=== PATIENT | female | born 1930 | race Caucasian/White ===

== ENCOUNTER 2016-06-30 10:50 | Inpatient (IN) | payer OTHER ==
[2016-06-30 11:03] LABS: % IMMATURE GRANULYOCYTES 0.4 % (0.0-1.1); ABSOLUTE IMMATURE GRANULOCYTES 0.03 10^3/uL (0.00-0.10); ADD DIFF? NO; ADD MORPH? NO; ADD SCAN? NO; ATYPICAL LYMPHOCYTE FLAG 0 (0-99); FRAGMENT RBC FLAG 0 (0-99); HEMATOCRIT 41.3 % (38.0-47.0); HEMOGLOBIN 14.3 g/dL (12.6-16.3); LEFT SHIFT FLG 0 (0-99); LIPEMIA HEMOLYSIS FLAG 90 (0-99); MEAN CELL HEMOGLOBIN 32.7 pg (27.9-34.1); MEAN CELL HEMOGLOBIN CONCENTR. 34.6 g/dL (32.4-36.7); MEAN CELL VOLUME 94.5 fL (81.5-99.8); MEAN PLATELET VOLUME 10.9 fL (8.7-11.7); PLATELET CLUMPS FLAG 0 (0-99); PLATELET COUNT 139 10^3/uL (150-400); RED BLOOD CELL COUNT 4.37 10^6/uL (4.18-5.33); RED CELL DISTRIBUTION WIDTH 14.6 % (11.5-15.2)
[2016-06-30 11:15] LABS: INR 1.32 (0.83-1.16); PROTIME(PATIENT) 16.4 SEC (12.0-15.0)
[2016-06-30 11:17] LABS: ANION GAP 11 mEq/L (8-16); CALCIUM 8.8 mg/dL (8.5-10.4); CARBON DIOXIDE 31 mEq/l (22-31); CHLORIDE 93 mEq/L (97-110); CREATININE 0.6 mg/dL (0.6-1.0); GLOMERULAR FILTRATION RATE > 60; GLUCOSE 124 mg/dL (70-100); POTASSIUM 4.7 mEq/L (3.5-5.2); SODIUM 135 mEq/L (134-144)
--- NOTE | 2016-06-30 11:32 | CT ---
CT Head Without Contrast History: Found down, stroke alert. Comparison: None available. Technique: Axial unenhanced images were obtained from the vertex through the skull base. Dose reducti on techniques were utilized. Findings: There is extensive hypodensity throughout the right MCA distribution with edema and loss of sutherland-white differentiation, with areas of high attenuation in the temporal lobe (series 3 image 55 e .g.), compatible with a large MCA infarct with possible hemorrhagic transformation. High attenuation in the right middle cerebral artery suggests occlusion. Mild diffuse cerebral atrophy is present. The re is no significant midline shift. Mild mucous membrane thickening is present in the paranasal sinus es. The mastoid air cells are clear. Impression: 1. Large right MCA infarct, possibly subacute, with likely hemorrhagic transformation, with high atte nuation of the right MCA, consistent with occlusion. 2. Additional findings as above. Findings discussed with Dr. Angelic Hooks today at 1105 hours.
--- NOTE | 2016-06-30 11:43 | DX ---
Portable Chest - June 30, 2016 at 1133 hours History: Acute neurologic change, found down.. Comparison: None available. Findings: There is mild diffuse interstitial prominence. There is no focal consolidation or visible p leural effusion. There is moderate cardiomegaly. The aorta is ectatic, tortuous, and atherosclerotic. Fracture of the third superiormost sternotomy wire is noted. Multiple surgical clips are present in the axillae bilaterally and over the right chest. Mastectomy changes are noted. Impression: 1. Mild interstitial prominence, which could be related to bronchitis or mild fluid overload. 2. Cardiomegaly. 3. Tortuous ectatic atherosclerotic aorta. 4. Additional findings as above.
[2016-06-30] MEDS ORDERED: HYDROCORTISONE 100 MG/2 ML VIAL IVP ONE (12:30)
[2016-06-30] MEDS ORDERED: ONDANSETRON 4 MG/2 ML VIAL IVP PRN (14:17)
[2016-06-30] MEDS ORDERED: ACETAMINOPHEN 650 MG SUPP PR PRN (14:17)
[2016-06-30] MEDS: NS 1,000 ML IV SCH (15:22)
[2016-06-30] MEDS: LEVOTHYROXINE 100 MCG/5 ML SYR IVP SCH (15:28)
--- NOTE | 2016-06-30 16:04 | GCON ---
[f rep st] CONSULTATION SENIOR MOBILE APPLICATION DEVELOPER CONSULTATION. REASON FOR ADMISSION: Acute large stroke. HISTORY OF PRESENT ILLNESS: The patient is an 86-year-old white female with a past medical history o f hypertension and atrial fibrillation. She presents after being found down at home by her son, marguerite ear how long she had been down. She was brought to the emergency room. It was decided that she was not a candidate for tPA. CT scan shows a very large stroke. The patient is currently nonverbal. He r eyes are open. All history is gleaned from the medical record as well as the patient's son. PAST MEDICAL HISTORY: Significant for hypertension and atrial fibrillation. ALLERGIES: None known to medications. SOCIAL HISTORY: No history of tobacco use. Infrequent alcohol use. She is . 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 She has lived in [place] since 2008. S he is originally from [facility]. CURRENT MEDICATIONS: Include Tylenol, Synthroid, Zofran. PHYSICAL EXAM: VITAL SIGNS: Blood pressure is 179/88, pulse 61, respirations 17. She is afebrile. Oxygen saturation 99% on 2 L. GENERAL: She is a well-developed, well-nourished, elderly white fema le who is resting comfortably in no acute distress. HEENT: Eyes: CHUY. EOMI. Throat shows no hyun thema or tonsillar hypertrophy. NECK: Supple. There is no cervical adenopathy. HEART: Irregularl y irregular with a 2/6 systolic murmur in the left sternal border without radiation. LUNGS: Diminis hed breath sounds but no wheeze. ABDOMEN: Soft, nontender. Bowel sounds present in all 4 quadrants . EXTREMITIES: No clubbing, cyanosis, or edema. LABORATORIES: White count 7.0, hemoglobin of 14, hematocrit 41, platelet count is 139. INR is 1.32. Sodium 135, potassium 4.5, chloride 93, CO2 31, BUN 24, creatinine 0.6, glucose is 129. TSH is 4.[address] scan of the head shows a large right MCA infarct with some hemorrhagic transformation. IMPRESSION: 1. 2. Large right middle cerebral artery stroke. 3. Atrial fibrillation. 4. Hypertension. 5. Hypothyroidism. RECOMMENDATIONS: 1. Agree with admission to the intensive care unit. 2. Echocardiogram is currently being performed. 3. DVT and PE prophylaxis. 4. Stress ulcer prophylaxis. 5. Neurology consult. 6. PT and OT. 7. Speech consult. /[id number]/MODL
--- NOTE | 2016-06-30 16:44 | GHP ---
[f rep st] HISTORY AND PHYSICAL DATE OF ADMISSION: 06/30/2016 CHIEF COMPLAINT: Right MCA stroke. HISTORY OF PRESENT ILLNESS: The patient is an 86-year-old female, history of dementia, hypothyroidism, and adrenal insufficiency, presenting with weakness. Most of this history is obtained from patient's daughter and son, as the patient is not fully able to participate in history. The patient lives alone, and son was checking in on her yesterday. He spoke to her on the phone at approximately 6 p.m. and patient was lucid. He does state that she says she had not been feeling well for a week; but was not specific in symptoms. Per daughter, yesterday she was more confused, and they attributed this to her being off her oxygen for a short time. Her mental status has been declining over the past 6 months. Her baseline mental status is that she would know herself and place. Not necessarily the date. Son called her this morning, and there was no answer, and he thought perhaps she was in the shower or running errands as she still does drive. He called again at 10 a.m. and still no answer. Thus, he was concerned and went over to her home. He found her on the floor. She had slurry speech at that time. She did not want to come to the hospital. CT head demonstrated a large right MCA infarct with likely hemorrhagic transformation consistent with occlusion. The patient with history of atrial fibrillation, is on baby aspirin. She had previously been on Coumadin; however, had a retroperitoneal bleed several years ago. REVIEW OF SYSTEMS: I completed a 10-point review of systems with family, negative except as noted in HPI. PAST MEDICAL HISTORY: 1. Dementia with decline over the last 6 months. 2. Hypothyroid. 3. Adrenal cyst. 4. Urinary incontinence. 5. Pulmonary hypertension. 6. Chronic hypoxemic respiratory failure, 2 L at rest, 4-5 L with exertion. 7. Atrial fibrillation. Please go back up to HPI. 8. History of retroperitoneal bleed on Coumadin. PAST SURGICAL HISTORY: The patient not able to tell me. FAMILY HISTORY: No strokes. SOCIAL HISTORY: Lives alone in [place]. Son is 2 blocks away. She normally walks several times a week with trek poles or a cane. Had remote tobacco. No alcohol or illicits. MEDICATIONS: 1. Hydrocortisone 2.5 mg daily. 2. Fish oil. 3. Multivitamin. 4. Levothyroxine 25 mcg daily. 5. Levothyroxine 37.5 mcg daily at 6 a.m. 6. Aspirin 81 mg. 7. Vitamin C. ALLERGIES: No known drug allergies. PHYSICAL EXAMINATION: VITAL SIGNS: Temperature 36.8, blood pressure 179/80, heart rate is 60s, respirations 17 99% on 2 L. GENERAL: Patient is lying in bed , in no acute distress. She opens her eyes to voice. Pupils are small, round reactive to light. CV: Irregularly irregular. No murmurs, gallops, or rubs. LUNGS: Clear to auscultation. ABDOMEN: Soft, nontender, nondistended. Positive bowel sounds. : No suprapubic tenderness. No Torres. MUSCULOSKELETAL: 5/5 upper lower extremity strength on the right. No hand clerical supervisor on the left. NEUROLOGIC: Decreased sensation over left face, as well as left upper extremity and left lower extremity. Upgoing toes. PSYCHIATRIC: The patient is alert, is able to answer some questions. She knows she is in [place]. LABS: WBC 7, hemoglobin 14, hematocrit 41, platelets 139. INR is 1.3, PT 16. Sodium 135, potassium 4.7, chloride 93, carbon dioxide 31, creatinine 0.6, glucose 126. TSH 4.7. Chest x-ray personally reviewed by me. Mild interstitial prominence. No overt fluid overload. Cardiomegaly. Head CT: Large right MCA infarct, possibly subacute with likely hemorrhagic transformation. Telemetry with atrial fibrillation. EKG is pending. ASSESSMENT/PLAN: 1. Right middle cerebral artery stroke: she was evaluated by Telemedicine Neuro in the ER. Could not determine exact time when symptoms began; thus, not a candidate for tPA. She currently has significant left-sided deficits. She is speaking more, per her family. She will be admitted to the ICU for neuro checks. Plan for evaluation by PT, OT and speech pathology. I suspect this is embolic with underlying atrial fibrillation. Patient currently on baby aspirin , but unclear if she is compliant with this every day. She was previously on coumadin, but this was complicated by a retroperitoneal bleed. 2. Dementia: Per family, her mental status has been declining over the last 6 months. She is living alone with family close by. Suspect the patient will need acute rehab after hospitalization. 3. Atrial fibrillation: Rate-controlled, currently off medications. Had been on aspirin. Holding this. We will have to have further discussions with the family as far as anti-platelet medication. 4. Hypothyroidism: Will dose with IV levothyroxine since not taking p.o. 5. Adrenal insufficiency: she is chronically on a very low dose of hydrocortisone. Will redose tomorrow 6. Chronic hypoxemic respiratory failure: She is at her baseline of 2 L. will monitor closely. 7. Diet: N.p.o. 8. DVT prophylaxis: SCDs. 9. Goals of care: I talked with both daughter and son, and she is currently full code. If things were to decline, would have further discussions. DISPOSITION: Patient warrants inpatient admission given acute stroke, and monitoring in the ICU. Time spent on visit: 75 min in which >50% spent counseling son and daughter on prognosis and treatment plan. /[id number]/MODL MTDD
--- NOTE | 2016-06-30 18:44 | ECHO ---
[id number] + + [address] : : [place] [address] : : [phone] + + Adult Echocardiographic Report + ------+ :Name: MARLENE GALAN 898Study Date: 06/30/2016 03:08 PM : : Hospital Admission Number: [id number] : :: 1930 Gender: Female Height: 63 in : :Age: 86 yrs Race: WH,PTJAE Weight: 14 2 lb : :Reason For Study: Eval for Embolic Source : : BSA: 1.7 m eters2: :History: CVA : + ------+ MMode/2D Measurements & Calculations IVSd: 0.79 cm LVIDd: 5.2 cm FS: 38.3 % MV Diam: 3.4 cm LVPWd: 0.80 cm LVIDs: 3.2 cm EDV(Teich): 130.2 ml ESV(Teich): 41.4 ml EF(Teich): 68.2 % Ao root diam: 3.6 cm LVOT diam: 1.7 cm ACS: 1.7 cm LVOT area: 2.3 cm2 Normal Measurement Values: + + :LVIDd (3.5-5.7cm) IVSd (0.6-1.1cm) LVPWd (0.6-1.1cm) Aortic Root (2.0-3.7cm)Left Atrium (1.5-4.0cm): :LV Vol(d) (76-115ml) LV Vol(s) (29-48ml) Ejec Fraction (50-65%)PV Jorge (0.6- 1.2m/s) TV Jorge (0.4-1.0m/s) : :MV E Jorge (0.8-1.0m/s)MV A Jorge (0.3-1.0m/s)LVOT Jorge (0.7-1.2m/s) Asc Ao Jorge ( 0.9-1.8m/s) : + + Doppler Measurements & Calculations MV E max jorge: MV V2 mean: MV P1/2t max jorge: Ao V2 max: 117.0 cm/sec 97.8 cm/sec 152.3 cm/sec 187.1 cm/sec MV A max jorge: MV mean PG: MV P1/2t: 63.1 msec Ao max P.7 cm/sec 4.3 mmHg 14.0 mmHg MV E/A: 1.8 MV V2 VTI: 38.2 cm MVA(P1/2t): 3.5 cm2 Ao mean PG: MV area (1 diam): MV dec slope: 7.8 mmHg 706.8 cm/sec2 Ao V2 mean: 9.3 cm2 126.8 cm/sec MVA(VTI): 1.1 cm2 Ao V2 VTI: MV Flow area 41.1 cm (1diam): 9.3 cm2 ERIKA(I,D): 1.0 cm2 ERIKA(V,D): 1.2 cm2 AI max jorge: LV V1 max: MR max jorge: MR(RF 1 diam): 451.5 cm/sec 95.3 cm/sec 464.4 cm/sec 2.2 % AI max PG: LV V1 max PG: MR max P.3 mmHg 81.5 mmHg 3.6 mmHg LV V1 mean P.6 mmHg LV V1 mean: 54.2 cm/sec LV V1 VTI: 18.5 cm SV(MV 1 diam): TR max jorge: RF(MV,Ao)(1 diam): - 354.1 ml 389.6 cm/sec 0.18 SI(MV 1 diam): TR max PG: RF(MV,LVOT)(1diam): 211.8 ml/m2 60.7 mmHg 0.88 SV(LVOT): 42.0 ml RAP systole: 5.0 mmHg RVSP(TR): 65.7 mmHg Left Ventricle The left ventricle is normal in size. There is normal left ventricular wall thickness. The left ventricular ejection fraction is normal. There is Doppler evidence for diastolic dysfunction. Ejection Fraction = 68%. The left ventricular wall motion is normal. Right Ventricle The right ventricle is normal in size and function. Atria The left atrium is severely dilated. The right atrium is moderate to severely dilated. Mitral Valve There is moderate mitral annular calcification. There is a moderate to large focal calcification of the posterior mitral valve annulus. There is no mitral valve stenosis. There is mild mitral regurgitation. Tricuspid Valve There is severe tricuspid regurgitation. Right ventricular systolic pressure is 65mmHg. There is Doppler evidence for moderate to severe pulmonary hypertension. Aortic Valve The aortic valve is trileaflet. Mild-Moderate Aortic Valve Calcification. There is a hyperechoic mobile density on the non-coronary cusp of the aortic valve. There is no aortic stenosis. Moderate to severe aortic regurgitation. Pulmonic Valve The pulmonic valve is normal in structure and function. Great Vessels Mild atherosclerotic plaque(s) in the descending aorta. Pericardium/Pleural There is no pericardial effusion. Conclusion A complete two-dimensional transthoracic echocardiogram was performed (2D, M-mode, Doppler and color flow Doppler). Clinical correlation is recommended. The left ventricular ejection fraction is normal. There is Doppler evidence for diastolic dysfunction. Ejection Fraction = 68%. The left ventricular wall motion is normal. The right ventricle is normal in size and function. The left atrium is severely dilated. There is moderate mitral annular calcification. There is a moderate to large focal calcification of the posterior mitral valve annulus. There is mild mitral regurgitation. There is severe tricuspid regurgitation. Right ventricular systolic pressure is 65mmHg. There is Doppler evidence for moderate to severe pulmonary hypertension. The aortic valve is trileaflet. Moderate to severe aortic regurgitation. Mild atherosclerotic plaque(s) in the descending aorta. There is no pericardial effusion. Clinical correlation is recommended. There is a hyperechoic mobile density on the non-coronary cusp of the aortic valve consistent with a vegetation. It is not clear if this is old or new. This was not evident on an old echo in the office 12/14/2013. The patient is also in atrial fibrillation, which could be responsible for the the patient's clinical history of acute stroke. Consider PAKO to rule out left atrial appendage thrombus as well as to evaluate the other valves. Final Reading Physician: Shanel Barry signed on 06/30/2016 06:43 PM Ordering Physician: Gertrude Leon Performed By: Carlos Garcia, MALLORIECS
[2016-06-30] MEDS: FAMOTIDINE 20 MG/NACL 50 ML IV SCH (20:18)
[2016-07-01] MEDS: NS 1,000 ML IV SCH (02:43)
[2016-07-01 03:33] LABS: HEMATOCRIT 36.3 % (38.0-47.0); HEMOGLOBIN 12.4 g/dL (12.6-16.3); MEAN CELL HEMOGLOBIN 32.5 pg (27.9-34.1); MEAN CELL HEMOGLOBIN CONCENTR. 34.2 g/dL (32.4-36.7); RED BLOOD CELL COUNT 3.82 10^6/uL (4.18-5.33); RED CELL DISTRIBUTION WIDTH 14.6 % (11.5-15.2)
[2016-07-01 03:49] LABS: ANION GAP 7 mEq/L (8-16); CALCIUM 8.1 mg/dL (8.5-10.4); CARBON DIOXIDE 29 mEq/l (22-31); CHLORIDE 99 mEq/L (97-110); CHOLESTEROL 115 mg/dL (140-220); CHOLESTEROL/HDL RATIO 2.95 RATIO (1.00-4.44); CREATININE 0.5 mg/dL (0.6-1.0); GLOMERULAR FILTRATION RATE > 60; GLUCOSE 110 mg/dL (70-100); HIGH DENSITY LIPOPROTEIN 39 mg/dL (40-85); LDL/HDL RATIO 1.69 RATIO (1.00-3.22); LOW DENSITY LIPOPROTEIN 66 mg/dL (80-100); NON-HIGH DENSITY LIPOPROTEIN 76 mg/dL (90-129); POTASSIUM 3.9 mEq/L (3.5-5.2); SODIUM 135 mEq/L (134-144); TRIGLYCERIDE 52 mg/dL (35-135); VERY LOW DENSITY LIPOPROTEINS 10 mg/dL (8-25)
--- NOTE | 2016-07-01 07:35 | EDPHY ---
H & P Stated Complaint: Stroke HPI/ROS: CC: Found down at home by son HPI: This is an 86 year old female with history of atrial fibrillation on ASA. She did not answer the phone when her son called this morning and when he went to her house he found her on the floor, having difficulty moving and speaking. 911 was called and she was transported to the ED. Other medical history includes dementia with decline over past several months, pulmonary hypertension, chronic respiratory failure on oxygen, breast CA s/p bilateral mastectomies, hypothyroidism, adrenal insufficiency. Yesterday she had some increasing confusion thought to be related to her being off oxygen for a bit or possibly to the fact that she had taken an extra dose of thyroid medication. This reportedly resolved and when her son spoke to her on the phone last evening she seemed fine. Six PM yesterday is the last time that she was known to be normal. Time of symptom onset unknown. Her son states that her bed was made this morning and there was cereal in the bowl. Source: Family, EMS Exam Limitations: Clinical condition - Personal History Current Tetanus/Diphtheria Vaccine: Unsure Current Tetanus Diphtheria and Acellular Pertussis (TDAP): Unsure - Medical/Surgical History Hx Asthma: No Hx Chronic Respiratory Disease: No Hx Diabetes: No Hx Cardiac Disease: No Hx Renal Disease: No Hx Cirrhosis: No Hx Alcoholism: No Hx HIV/AIDS: No Hx Splenectomy or Spleen Trauma: No Other PMH: 1. Dementia. 2. Atrial fibrilation on ASA, s/p retroperitoneal bleed on coumadin. 3. Breast CA, s/p bilateral mastectomies. 4. Chronic respiratory failure, on 2-5 L O2. 5. Hypothyroid. 6. Adrenal insufficiency on 2.5 mg hydrocortisone daily. 7. Pulmonary hypertension - Social History Smoking Status: Unknown if ever smoked Additional Social History: She lives alone with close contact with her children. Originally from [place]. Worked as an commercial accountant. . No tobacco use, rare alcohol. - Physical Exam Exam: General: No apparent distress. BP 169/85, HR 77, RR 18, O2 Sat 93% on O2 per NC, T 36.8 oral. HEENT: Normocephalic, atraumatic. Conjunctiva clear, anicteric. Oral mucosa slightly dry. Neck: Bruise left lateral neck. No lymphadenopathy. Trachea midline. Lungs: Distant breath sounds, no wheezing or ronchi. Heart: Irregularly irregular. No murmur, rub, or gallop. Thorax: Bilateral mastectomies. No crepitus. Abdomen: Soft and without apparent tenderness. Bowel sounds present. No masses. Back: No thoracolumbar stepoff or deformity. Ext: Bilateral LE edema. Neuro: Nonverbal. Not following commands. Pupils small, round, equal. Gaze deviation to right. No apparent facial weakness. Tongue midline. Left UE flaccid. Some spontaneous movement of left leg. Right UE with drift, spontaneous movement RLE. Unable to formally test strength and sensation due to her inability to cooperate with testing. Toes upgoing bilaterally. Constitutional: Initial Vital Signs O2 Sat (%) 98 06/30/16 11:00 O2 Delivery Mode Room Air,Humidified O2 (L/minute) 10 Allergies/Adverse Reactions: No Known Allergies Allergy (Unverified 06/30/16 11:34) Home Medications: Medication Instructions Recorded Ascorbic Acid [Vitamin C 500 mg 1,000 mg PO DAILY@1130 06/30/16 (*)] Aspirin 81 mg PO DAILY 06/30/16 Glaucoma Eye Drops 06/30/16 Herbals/Supplements -Info Only 1 ea PO DAILY 06/30/16 Hydrocortisone Acetate 2.5mg 2.5 mg PO DAILY 06/30/16 Levothyroxine Sodium [Unithroid] 25 mcg PO DAILY 06/30/16 Levothyroxine Sodium [Unithroid] 37.5 mcg PO DAILY@06 06/30/16 Multivitamins [Multivitamin (*)] 1 each PO DAILY 06/30/16 Childwold-3 Fatty Acids [Fish Oil 1000 1,000 mg PO BID 06/30/16 mg (*)] Propylene Glycol/Peg 400/Pf 1 each OP QID PRN 06/30/16 [Systane 0.3-0.4% Eye Drops] Medical Decision Making - Diagnostics EKG Interpretation: EKG reviewed by me in [facility] A fib with rate of 70. Imaging: Head CT without co ntrast reported to me by Dr. Page and viewed by me in PACS. It shows a large right MCA infarct with likely MCA occlusion and an area of hemorrhagic transformation. Chest Xray shows cardiomegaly, tortuous aorta, NAPD. ED Course/Re-evaluation: 86 year old female with left sided weakness, global aphasia on arrival suggesting stroke--stroke alert called upon her arrival. Head CT shows large right MCA infarct. Dr. Zarate of [facility] consulted via telemedicine. He interviewed family also. Ms. Mahoney is not a TPA candidate. Time of symptom onset unknown. She is in atrial fibrillation, has not tolerated anticoagulation in the past and is currently taking ASA. She is also hypertensive in ED. I suspect stroke is related to one or both of these. She does not have history of hypertension. I do not want to decrease her BP significantly in the ED. I spoke at length with the patient's son and daughter. Her advance directives state that she does not want to be resuscitated if the situation is" hopeless ".At this point in time it seems that her children would consider intubation if needed. They have been informed that she has had a large stroke and might have significant permanent neurologic disability. They also have been told that it is too early to know what deficits she might have. The [facility] neurologist also addressed these issues with them. CBCs, chemistries, coags reviewed. CXR and EKG reviewed. Differential Diagnosis: I considered a ddx that includes but is not limited to hemorrhagic or ischemic infarct, seizure, infection/sepsis, hypoxia, effect of medication, and electrolyte abnormality. Critical Care Time: This patient received 45 minutes of critical care, exclusive of bedside procedures (none were performed). There was no midlevel involvement in her care while in the ED. My time included interviewing and talking with family and consultants. The patient was at risk of neurologic deterioration. - Data Points Laboratory Results: Laboratory Results 06/30/16 10:53 06/30/16 10:53 Medications Given: Discontinued Medications Hydrocortisone (Solucortef) 100 mg IVP EDNOW ONE Stop: 06/30/16 12:31 Last Admin: 06/30/16 12:41 Dose: 100 mg Departure - Departure Disposition: [facility] Acute Clinical Impression: Acute ischemic stroke Condition: Critical
[2016-07-01] MEDS ORDERED: CALCIUM CARBONATE 500 MG CHEWABLE TAB PO ONE (08:06)
[2016-07-01] MEDS: FAMOTIDINE 20 MG/NACL 50 ML IV SCH ×2 (08:08→20:38)
[2016-07-01] MEDS: LEVOTHYROXINE 100 MCG/5 ML SYR IVP SCH (10:27)
--- NOTE | 2016-07-01 10:31 | GCON ---
[f rep st] CONSULTATION NEUROLOGIC CONSULTATION REFERRING PHYSICIAN: Gertrude Leon MD HISTORY: The patient is an 86-year-old woman, who was living independently until presenting [facility] and being found to have a very large right hemisphere stroke. History is obtained from review of the medical records. The patient herself cannot provide much detail. Son is not curr ently here in the room. There is some history of dementia. The story is that she was at home yester day and around 6 p.m. seemed to be at her baseline. There is some story that she was not feeling richie y well over the last week. She became more confused and they thought she had developed this from chinyere ng off her oxygen. There has apparently been some decline in mental status over 6 months. She abelino lly is oriented, but not always to the date. When her son checked on her yesterday morning, he did n ot get an answer and then followed up again later around 10 a.m. and checked on her, and she was foun d on the floor with dysarthric speech. She came to the emergency department, had a head CT showing edema in the right middle cerebral artery territory and some mild hemorrhagic transformation, and the n suspicion that there was probable occlusion in the right middle cerebral artery, but she had not gunter d a CT angiogram. There were no clear-cut alleviating or exacerbating factors otherwise. The patien t denies any other specific symptoms, but is somewhat limited in her history. She has not had a prio r history of stroke. She does have a history of atrial fibrillation, but is not on an anticoagulant because of a prior retroperitoneal bleeding episode on Coumadin. REVIEW OF SYSTEMS: I completed a 10-point review of systems and that is unremarkable, except for miguel a t noted above. Hypothyroidism. She has some chronic lymphedema in the left upper extremity. Respiratory insufficie ncy with 2 L of oxygen usually at rest. Incontinence, pulmonary hypertension, some evolving dementia . FAMILY HISTORY: Noncontributory from a neurologic standpoint. SOCIAL HISTORY: No smoking in the distant past. No alcohol. She has been living independently with her son just a few blocks from where she lives. MEDICATIONS ON ADMISSION: She came to the hospital, she was on hydrocortisone, fish oil, multivitam in, levothyroxine, aspirin, vitamin C, and the oxygen. ALLERGIES: No known drug allergies. CURRENT MEDICATIONS: Here in the hospital, she is getting saline, her thyroid, Pepcid, and Tylenol. PHYSICAL EXAM: VITAL SIGNS: Blood pressure 142/68, pulse of 62, respirations 19, temperature 36.8. GENERAL: She is an elderly woman lying in the bed, in no acute distress. NECK: Supple with no bru its or masses. CARDIAC: Regular rate and rhythm. No murmur. EXTREMITIES: Have no cyanosis, but s he has edema in the left upper extremity and some bilateral distal lower extremity edema. Some chron ic dryness and scaling of the skin. I cannot feel the pulses in the legs, but 2+ in the upper extrem ities. NEUROLOGIC: She is lethargic, but awake. She is not oriented to the month or the year or he r location. She seemed to not be able to tell me her name. She is not aphasic, but does have a rath er prominent dysarthria. Recent and remote memory are reduced. General fund of knowledge is reduced , and concentration and attention are abnormal. She will follow some commands, but sometimes has to be reminded of what I asked and sometimes perseverates on answers. Pupils are 2 mm and reactive. I could not view her fundi. Visual field testing suggests left visual field loss. Extraocular movemen ts are intact. Normal facial sensation on the right, but decreased on the left temperature. She has severe left lower facial weakness. She has severe dysarthria. Palate elevates poorly. Tongue prot rudes midline. She has weakness in her neck and shoulders. On motor examination, she has severe lef t-sided weakness with essentially no movement, except for pathologic withdrawal to stimulation of the left foot. There is increased tone in the left upper extremity. Right side is 5/5. Sensation is r educed on the right side and equivocal on the left. No ataxic movements, but she is paralyzed on the left. She has a triple flexion response on the left to plantar stimulation or any stimulation of th e foot. 2+ reflexes on the right. DATA REVIEWED: An echocardiogram shows possible vegetation in the left aortic valve. and severe left atrial dilatation. Ejection fraction is preserved. I have reviewed the head CT showing severe danielle y edema in the right hemisphere consistent with a right MCA stroke and possible proximal occlusion. There is no mass effect on the initial scan, other than the effacement of the sulci. LABORATORY STUDIES: Show a white count of 7000. Chemistries unremarkable, except LDL of 66. INR 1.32 . IMPRESSION: The patient has experienced a large right middle cerebral artery stroke, probably emboli c in nature given her history of atrial fibrillation off anticoagulation, as well as the possible veg etations around the aortic valve. Because of the size of the stroke, anticoagulation is relatively contraindicated at this stage. We will monitor her clinical course. Transesophageal echocardiogram is not necessary in the short-term since it will not change her management, but that can be considere d if she stabilizes enough to potentially survive and get through this process. However, I will have a discussion with her son and see what the patient's wishes might be regarding interventions. I do not know if she will recover enough to swallow safely and the prognosis is very poor for meaningful r ecovery on the left side. She also has neglect on the left side making it difficult for her recogniz e the severity of her deficits. She has an NIH stroke scale of 17. Use of aspirin would be appropri ate, so she can take that per rectum until she is able to swallow. /[id number]/MODL
--- NOTE | 2016-07-01 11:44 | PDINTPN ---
School Psychology Professor Progress Note Assessment/Plan: Assessment: * Acute stroke-large MCA * Hemiparesis * HTN * Afib * Hypothyroid Plan: Speech OT/PT Nutrition Okay for floor Subjective: Awake, talking Objective: Vital Signs Temp Pulse Resp BP Pulse Ox 36.8 C 61 21 H 129/72 H 98 07/01/16 07:00 07/01/16 11:00 07/01/16 11:00 07/01/16 11:00 07/01/16 11:00 Laboratory Results 07/01/16 03:15 07/01/16 03:15 06/30/16 07/01/16 07/02/16 05:59 05:59 05:59 Intake Total 761 Balance 761 PT 16.4 SEC (12.0-15.0) H 06/30/16 10:53 INR 1.32 (0.83-1.16) H 06/30/16 10:53 Physical Exam - Physical Exam General Appearance: alert, no apparent distress EENT: PERRL/EOMI Neck: non-tender, full range of motion, supple, normal inspection Respiratory: chest non-tender, lungs clear, normal breath sounds Cardiac/Chest: systolic murmur, irregularly irregular Abdomen: normal bowel sounds, non-tender, soft Pelvic Exam: deferred Rectal: deferred Skin: normal color, warm/dry ICD10 Worksheet Patient Problems: Problems Problem Status Diagnosed Acute ischemic stroke Acute
--- NOTE | 2016-07-01 12:01 | HOSPPROG ---
Hospitalist Progress Note Assessment/Plan: #Right MCA stroke -significant left-sided deficits -suspect due to atrial fibrillation vs. vegetation on aortic valve -speech, PT, OT -ASA rectally #Hypothyroidism -LT4 #Atrial fibrillation -rate controlled -ASA per rectum if cannot take PO #Dementia #Chronic hypoxemic resp failure -at baseline O2 needs #Dysphagia -did not pass swallow eval today -family very concerned about feedings. Will readdress tomorrow with Dobhoff vs G -tube -explained that G-tube does not reduce risk of aspiration #Deconditioning -rehab at DC #Hypothyroidism -IV LT4 #Adrenal insufficiency -she is on a very small dose hydrocortisone. Will calculate IV equivalent #Goals: I had extensive conversation with son about prognosis. I broached Palliative care. Cor status was discussed by Dr. Hernández. Limited COR with intubation only. Time spent on visit: 60 min in which >50% spent counseling family on prognosis, feeding options, and goals Subjective: talking more per family Objective: Vital Signs Temp Pulse Resp BP Pulse Ox 36.8 C 61 21 H 129/72 H 98 07/01/16 07:00 07/01/16 11:00 07/01/16 11:00 07/01/16 11:00 07/01/16 11:00 Laboratory Results 07/01/16 03:15 07/01/16 03:15 06/30/16 07/01/16 07/02/16 05:59 05:59 05:59 Intake Total 761 Balance 761 PT 16.4 SEC (12.0-15.0) H 06/30/16 10:53 INR 1.32 (0.83-1.16) H 06/30/16 10:53 - Physical Exam Constitutional: no apparent distress Eyes: PERRL Ears, Nose, Mouth, Throat: moist mucous membranes, hearing normal Cardiovascular: irregularly irregular Respiratory: no respiratory distress, no rales or rhonchi Gastrointestinal: normoactive bowel sounds Skin: warm Musculoskeletal: other (5/5 strength RUE/RLE. Min stregnth on left side. Falls to left when sitting up in bed. ) Neurologic: other (left visual neglect. Dysarthic) ICD10 Worksheet Patient Problems: Problems Problem Status Diagnosed Acute ischemic stroke Acute
--- NOTE | 2016-07-01 16:44 | WOCRNPDOC ---
WOCRN Advanced Assessment Note - Skin Integrity Problem, Advanced Assess Coccyx Dressing Type: Allevyn Life Dressing Description: Clean/Dry, Intact Integumentary Issue Intervention: Visualized Under Dressing Tiffany Wound Tissue: Ecchymotic, Erythema, Swollen (slightly) Tiffany Wound Swelling: Mild Site Odor: None Site Measurement - Head-to-Toe Length X Width X Depth (cm): 3 cm stephane x 0 Pressure Injury Stage: Deep Tissue Injury (DTI) Pressure Injury Present on Admit: Yes (Per admission reports, patient was found down at home.) Skin Integrity Problem Comment: Intact, discolored site, protected with Allevyn and turns. Discussed staff monitoring with TONY Sanchez (ICU).
[2016-07-02 05:27] LABS: ANION GAP 9 mEq/L (8-16); CALCIUM 8.3 mg/dL (8.5-10.4); CARBON DIOXIDE 28 mEq/l (22-31); CHLORIDE 99 mEq/L (97-110); CREATININE 0.5 mg/dL (0.6-1.0); GLOMERULAR FILTRATION RATE > 60; GLUCOSE 114 mg/dL (70-100); POTASSIUM 3.2 mEq/L (3.5-5.2); SODIUM 136 mEq/L (134-144)
[2016-07-02] MEDS: D5W NS 1,000 ML IV SCH ×2 (06:12→21:21)
--- NOTE | 2016-07-02 08:53 | HOSPPROG ---
Hospitalist Progress Note Assessment/Plan: #Right MCA stroke -significant left-sided deficits -suspect due to atrial fibrillation vs. vegetation on aortic valve -speech, PT, OT -ASA rectally #Hypothyroidism -LT4 #Atrial fibrillation -rate controlled -ASA per rectum if cannot take PO #Dementia: stable #Chronic hypoxemic resp failure -at baseline O2 needs #Coccyx ulcer -wound care seeing #Dysphagia -did not pass swallow eval yesterday and would not wake up for eval today -family very concerned about feedings. -after extensive conversation, family wants Dobhoff placed and TFs started -they are contemplating feeding tube; I explained the risks and benefits, zachary that it won't reduce risk of aspiration #Deconditioning -rehab at DC #Hypothyroidism -IV LT4 #Adrenal insufficiency -she is on a very small dose hydrocortisone. Will calculate IV equivalent #Goals: I had extensive conversation with son and daughter again today about prognosis. I again talked about Palliative care and emphasized that we need to follow her goals. Her directives state to stop when things are "hopeless" and daughter thinks she would want further interventions like feeding tube. I expressed that DNR would be in her best interest rather than intubation only. Plan for meeting with family, Dr Gillis tomorrow to further discuss. Time spent on visit: 75 min in which 75 min spent counseling family on prognosis , feeding options, and Palliative care Subjective: patient not responding to questions Objective: Vital Signs Temp Pulse Resp BP Pulse Ox 36.9 C 56 L 16 158/71 H 89 L 07/02/16 08:00 07/02/16 08:00 07/02/16 08:00 07/02/16 08:00 07/02/16 08:00 Laboratory Results 07/01/16 03:15 07/02/16 04:50 07/01/16 07/02/16 07/03/16 05:59 05:59 05:59 Intake Total 761 1557 Balance 761 1557 PT 16.4 SEC (12.0-15.0) H 06/30/16 10:53 INR 1.32 (0.83-1.16) H 06/30/16 10:53 - Physical Exam Constitutional: no apparent distress Eyes: PERRL Ears, Nose, Mouth, Throat: moist mucous membranes Cardiovascular: irregularly irregular Respiratory: no respiratory distress, no rales or rhonchi, inspiratory crackles Gastrointestinal: soft, non-tender abdomen Genitourinary: no bladder fullness Skin: warm Musculoskeletal: other (0/5 LUE strength) Neurologic: other (not opening eyes to questions or participating in exam) ICD10 Worksheet Patient Problems: Problems Problem Status Diagnosed Acute ischemic stroke Acute
[2016-07-02] MEDS ORDERED: ASPIRIN RECTAL 300 MG SUPP PR SCH (09:00)
[2016-07-02] MEDS ORDERED: HYDROCORTISONE 100 MG/2 ML VIAL IVP SCH (09:00)
[2016-07-02] MEDS: FAMOTIDINE 20 MG/NACL 50 ML IV SCH ×2 (09:31→21:07)
[2016-07-02] MEDS ORDERED: LEVOTHYROXINE 100 MCG/5 ML SYR IVP SCH (10:00)
[2016-07-02] MEDS ORDERED: EYE EACHEYE SCH (12:00)
[2016-07-02] MEDS: POTASSIUM Cl (KCl) 100 ML IV SCH ×3 (12:15→17:20)
--- NOTE | 2016-07-02 13:18 | DX ---
Right hip 2 views History: Found down, pain. Comparison: None available. Findings: No fracture is identified. Alignment is normal. 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 Mild degenerative change is present in the lumbar spine and sacroiliac joints. Osteopenia is presen t. Impression: No acute osseous findings.
--- NOTE | 2016-07-02 13:19 | DX ---
Right knee 2 views History: Pain, found down. Comparison: None available. Findings: A cannulated screw traverses the patella obliquely. No fracture is identified. Osteopenia i s present. Mild osteoarthritis is present, most prominent in the patellofemoral compartment. There is a prominent patella enthesophyte at the insertion of the quadriceps tendon. A small joint effusion i s present. Impression: No acute osseous findings.
[2016-07-02] MEDS ORDERED: NON-FORMULARY NEW DRUG (Propylene Glycol/Peg 400/Pf [Systane 0.3-0.4% Eye Drops] 1 EACH) OP PRN (13:26)
[2016-07-02] MEDS ORDERED: Propylene Glycol/Peg 400/Pf [Systane 0.3-0.4% Eye Drops] OP PRN (13:27)
--- NOTE | 2016-07-02 15:12 | NEUROPROG ---
Assessment: #1 Large Right MCA stroke #2 A-Fib 35 minutes floor time reviewing notes, speaking to son (Eliceo) on phone, viewing HCT and history. Greater than 50% counseling regarding prognosis, options of care. Patient is somnolent and has dense left HP I arranged a family conference for tomorrow at 1:30 pm w/ son and daughter. Will continue asa and supportive care for now. Subjective: No new events Objective: Vital Signs Temp Pulse Resp BP Pulse Ox 36.9 C 60 16 162/76 H 90 L 07/02/16 12:00 07/02/16 12:00 07/02/16 12:00 07/02/16 12:00 07/02/16 12:00 Laboratory Results 07/01/16 03:15 07/02/16 04:50 07/01/16 07/02/16 07/03/16 05:59 05:59 05:59 Intake Total 761 1557 Balance 761 1557 PT 16.4 SEC (12.0-15.0) H 06/30/16 10:53 INR 1.32 (0.83-1.16) H 06/30/16 10:53 Left HP Allergies/Adverse Reactions: No Known Allergies Allergy (Unverified 06/30/16 11:34)
--- NOTE | 2016-07-02 18:20 | DX ---
Portable Chest 17:15 History: Possible pneumonia, NG tube placement Comparison: June 30 Findings: The patient's feeding tube is far down the lateral segment right lower lobe bronchus. There is dense left lower lobe consolidation with a pleural effusion. There may be new patchy infiltrate a t the right base although this may represent early atelectasis secondary to the patient's feeding tub e tube malposition. The heart is chronically enlarged. The pulmonary vascularity is equalized consist ent with mild pulmonary venous hypertension. Extensive right chest wall surgical clips, median sterno alicia wires and dense atherosclerotic calcification of the thoracic aorta are stable. Impression:1. Feeding tube far out the right lung base. 2. Suspect left lower lobe pneumonia with pleural effusion. 3. Compensated CHF. Results called to the patient's 3 north nurse at 6:18 p.m.
[2016-07-02] MEDS ORDERED: LATANOPROST 0.005% 2.5 ML OPHT DROPS EACHEYE SCH (21:00)
[2016-07-02] MEDS ORDERED: HYDROCORTISONE ACETATE TUBE SCH (21:00)
[2016-07-02] MEDS ORDERED: HYDROCORTISONE 10 MG TAB TUBE SCH (21:00)
[2016-07-03] MEDS ORDERED: PIPERACILLIN/TAZO 4.5 GM/DEX 100 ML IV SCH (03:30)
[2016-07-03] MEDS ORDERED: PIPERACILLIN NA/TAZO 4.5 GM in D5W 100 ML IV SCH (03:30)
[2016-07-03 03:36] LABS: BASE EXCESS 2.6 mEq/L (-2.5-2.5); BICARBONATE 27 mEq/L (22-26); MEASURED OXYGEN SATURATION 98 % (92-95); PCO2 43 mmHg (34-38); PO2 117 mmHg (65-75); TCO2 28 mEq/L (23-27)
[2016-07-03 03:38] LABS: BIPAP YES; INSP PRESSURE 16; O2 CONCENTRATIION 70 % (0-100); P/F RATIO 167 RATIO
[2016-07-03 03:39] LABS: EXP PRESSURE 6
[2016-07-03] MEDS ORDERED: LORazepam 2 MG/ML INJ IVP PRN ×2 (04:42→06:23)
--- NOTE | 2016-07-03 04:50 | HOSPPROG ---
Hospitalist Progress Note Assessment/Plan: 40 minutes of critical care time spent with the patient, at bedside, coordinating her care and addressing the issues outlined below: -patient's respiratory status acutely worsened, evidenced by tachypnea and hypoxia, resulting in a change from 2 L nasal cannula to a non-rebreather mask and continuing to saturate in the low 80s% -pulmonary exam revealed reduced air movement in the right hemithorax but no expiratory wheezes or bronchial breath sounds -she was placed on BiPAP therapy with 100% FiO2, and her oxygen saturations improved to the mid 90s% -chest x-ray demonstrated possible right lower lobe infiltrate, possible new aspiration pneumonia, given 1 dose of 4.5 g Zosyn -patient had remained densely encephalopathic during the shift with somnolence and poor ability to arouse -on my exam, the patient was not following commands, but she would withdraw from painful stimuli -noncontrast head CT demonstrated hemorrhagic conversion at the area of her ischemic infarct with right to left shift by approximately 1.6 cm and resultant herniation, discussed with Dr. Gregg -because the patient is currently in a non recoverable state, she is high risk for mortality within the next several hours, I contacted her son and listed MPOA , Eliceo Mahoney, and notified him of the situation -he expressed that his mother did not intend on receiving invasive measures and he believed it would be appropriate to not pursue any further aggressive measures such as intubation at this time -the patient will be adjusted to DNR/DNI, and we will initiate modified comfort measures at this time so that the patient's son and daughter are able to come visit with her mother during the time that she has remaining -I discussed with the patient's nurse, will provide as needed Ativan and morphine for respiratory comfort -we will not draw further labs, we will not pursue tube feeding, we will not continue antibiotics, non comfort meds, or telemetry Objective: Vital Signs Temp Pulse Resp BP Pulse Ox 37.3 C 78 22 H 187/108 H 96 07/03/16 02:45 07/03/16 04:18 07/03/16 04:18 07/03/16 03:03 07/03/16 04:18 Laboratory Results 07/03/16 03:45 07/02/16 04:50 07/01/16 07/02/16 07/03/16 05:59 05:59 05:59 Intake Total 761 1557 Balance 761 1557 PT 16.4 SEC (12.0-15.0) H 06/30/16 10:53 INR 1.32 (0.83-1.16) H 06/30/16 10:53 ICD10 Worksheet Patient Problems: Problems Problem Status Diagnosed Acute ischemic stroke Acute
[2016-07-03] MEDS ORDERED: LEVOTHYROXINE 25 MCG TAB TUBE SCH ×2 (06:00→09:00)
--- NOTE | 2016-07-03 07:16 | CT ---
CT Head Without Contrast History: Follow up right middle cerebral infarction, altered mental status, unresponsive. Technique: Noncontrast images through the head. Soft tissue and bone window evaluation is performed. Dose reduction techniques were utilized. Comparison: June 30, 2016. Findings: There is new right to left shift of 16 mm with subfalcine herniation of the right supratentorium into the left . The right lateral ventricle and third ventricle are obliterated. The left lateral ventricle is trapped and mildly dilated. There is increased edema in the right hemisphere with several foci of hemorrhage within the right hemisphere. There are dense swollen right sulci.There is no subarachnoid or subdural blood. The right choroid plexus is anteriorly medially displaced. The posterior fossa remains uninvolved, although the mid brain is torqued toward the patient's left secondary to the herniation. Impression: Marked worsening , worrisome for a preterminal state. Results discussed with the patient's nurse, Jennifer, and Alec Machado M.D. at 4: 15 and 4:20 a.m. respectively. General information for patients regarding this examination can be found at [email or web address]. If you have questions or comments about this report, please contact me at (hospital) or [phone] (cell). POS99 MTDD
[2016-07-03] MEDS ORDERED: SCOPOLAMINE HYDROBROMIDE 1.5 MG PATCH TD ONE (08:37)
--- NOTE | 2016-07-03 08:48 | DX ---
Portable AP chest. July 03, 2016At 3:00 AM History: Evaluate for aspiration pneumonia. Comparison examination: 1 hour 40 minutes earlier Findings: Decreasing pulmonary vascular congestion is present when compared to prior study. Cardiac s ilhouette remains markedly enlarged, and there are small bilateral pleural effusions, left greater th an right. Surgical clips overlie the right hemithorax and axilla. Prior median sternotomy. Cardiac si lhouette is markedly enlarged. Nasogastric tube extends to the gastric fundus. Impression: Decreasing pulmonary vascular congestion. Otherwise unchanged from earlier study. 4 there is likely a phlebolith E4 community
--- NOTE | 2016-07-03 09:13 | DX ---
Portable Chest at 122 hours History: Tube feed placement. Comparison: Portable chest July 03, 2016. Findings: Feeding tube tip extends off the inferior margin of the study with the lucent sideport in t he expected location of the gastric fundus. Diffuse interstitial opacities are unchanged with equivoc al increase in left basilar consolidation with an associated effusion. Mild right basilar consolidati on is stable with a probable small right effusion. Cardiomegaly is stable. The bones are stable. Impression: 1. NG tube tip extends off the inferior margin of the study, positioned within the stomach. 2. Equivocal increase in left basilar consolidation/effusion with stable right basilar consolidation and tiny effusion. 3. Stable probable pulmonary edema.
--- NOTE | 2016-07-03 14:16 | HOSPPROG ---
Hospitalist Progress Note Assessment/Plan: #Right MCA stroke -pt decompensated overnight from resp standpoint. Required Bipap -family called in and chose for comfort measures only -now DNR #Acute hypoxemic resp failure suspect due to aspiration -no treatment with abx #Symptom management -scopalamine, glyccopyrolate -morphine for breathlessness -they would not like to move her if she passes in next day or so, which I agree. Time spent on visit: 60 min in which >50% min spent counseling family on prognosis, symptom management, comfort care Subjective: CT showed herniation overnight Objective: Vital Signs Temp Pulse Resp BP Pulse Ox 36.6 C 63 19 182/108 H 97 07/03/16 07:49 07/03/16 07:49 07/03/16 07:49 07/03/16 04:42 07/03/16 07:49 Laboratory Results 07/03/16 03:45 07/02/16 04:50 07/02/16 07/03/16 07/04/16 05:59 05:59 05:59 Intake Total 1557 239 Balance 1557 239 PT 16.4 SEC (12.0-15.0) H 06/30/16 10:53 INR 1.32 (0.83-1.16) H 06/30/16 10:53 - Physical Exam Constitutional: no apparent distress, other (nonresponsive) Ears, Nose, Mouth, Throat: moist mucous membranes Cardiovascular: regular rate and rhythym Respiratory: other (agonal breathing) Gastrointestinal: normoactive bowel sounds, soft, non-tender abdomen Skin: warm Neurologic: other (withdrawal to pain. Nonresponsive) ICD10 Worksheet Patient Problems: Problems Problem Status Diagnosed Acute ischemic stroke Acute
--- NOTE | 2016-07-03 14:41 | NEUROPROG ---
Assessment: #1 Catastrophic large Right MCA stroke #2 A-Fib 45 minutes floor time reviewing latest HCT w/ family - severe progression of imaging of stroke w/ herniation changes. > 50% counseling regarding HCT w/o , stroke and plan of comfort care Patient is somnolent and has dense left HP, irregular breathing. PLAN: - Comfort care, signing off, follow up PRN Subjective: Progression overnight Objective: Vital Signs Temp Pulse Resp BP Pulse Ox 36.6 C 63 19 182/108 H 97 07/03/16 07:49 07/03/16 07:49 07/03/16 07:49 07/03/16 04:42 07/03/16 07:49 Laboratory Results 07/03/16 03:45 07/02/16 04:50 07/02/16 07/03/16 07/04/16 05:59 05:59 05:59 Intake Total 1557 239 Balance 1557 239 PT 16.4 SEC (12.0-15.0) H 06/30/16 10:53 INR 1.32 (0.83-1.16) H 06/30/16 10:53 left HP Allergies/Adverse Reactions: No Known Allergies Allergy (Unverified 06/30/16 11:34)
[2016-07-03] MEDS ORDERED: GLYCOPYRROLATE 0.2 MG/1 ML VIAL IVP PRN (18:51)
[2016-07-03 20:59] VITALS: BP 175/103; PULSE 70; RESP 20; TEMP 97.7; O2SAT 91
[2016-07-04] MEDS ORDERED: PATCH REMOVAL 1 EA PATCH TD ONE (08:37)
[2016-07-04] MEDS ORDERED: LEVOTHYROXINE 100 MCG/5 ML SYR IVP SCH (12:00)
--- NOTE | 2016-07-04 15:33 | PDIAF ---
- Diagnosis Code Status: Do Not Resuscitate - Medication Management Discharge Medications: Medications to Continue on Transfer Ascorbic Acid [Vitamin C 500 mg (*)] 1,000 mg PO DAILY@1130 06/30/16 [Last Taken Unknown] Aspirin 81 mg PO DAILY 06/30/16 [Last Taken Unknown] Herbals/Supplements -Info Only 1 ea PO DAILY 06/30/16 [Last Taken Unknown] Hydrocortisone Acetate 2.5mg 2.5 mg PO DAILY 06/30/16 [Last Taken Unknown] Latanoprost 0.005% [Xalatan 0.005% (*)] 1 drops EACHEYE HS 06/30/16 [Last Taken Unknown] Levothyroxine Sodium [Unithroid] 25 mcg PO DAILY 06/30/16 [Last Taken Unknown] Levothyroxine Sodium [Unithroid] 37.5 mcg PO DAILY@06 06/30/16 [Last Taken Unknown] Multivitamins [Multivitamin (*)] 1 each PO DAILY 06/30/16 [Last Taken Unknown] [place]-3 Fatty Acids [Fish Oil 1000 mg (*)] 1,000 mg PO BID 06/30/16 [Last Taken Unknown] Propylene Glycol/Peg 400/Pf [Systane 0.3-0.4% Eye Drops] 1 each OP QID PRN 06/30 [Last Taken Unknown] Discharge Medications: Refer to the Discharge Home Medication list for PRN reason. - Orders Services needed: Registered Nurse, Certified Clinical Faculty - Follow Up Care Current Providers and Referrals: [place],. [Primary Care Provider] -
--- NOTE | 2016-07-04 16:23 | GDS ---
[f rep st] DISCHARGE SUMMARY DISCHARGE DIAGNOSES: 1. 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 2. Atrial fibrillation. 3. Acute on chronic hypoxemic respiratory failure. 4. Suspected aspiration. 5. Dyspnea. 6. Dementia with decline over last 6 months. 7. Hypothyroidism. 8. Adrenal cyst. 9. Urinary incontinence. 10. Pulmonary hypertension. 11. History of retroperitoneal bleed, on Coumadin. CONSULTATIONS: Neurology. HPI: Patient is an 86-year-old female with history of dementia, hypothyroidism , and atrial fibrillation, who was brought in after son found patient down in her kitchen. Patient lives alone and son was checking in on her day of admission. He had spoke to her day prior approximately 6 p.m. and patient was lucid. He does state that she has not been feeling well for the past week, but she cannot be specific in symptoms. Per daughter, she was more confused, which they attributed to her being off her oxygen for a short time. The son called day of admission, there was no answer. He thought perhaps she was in the shower. He then called a second time and no answer. He went over and found her on the floor. Unclear how long she had been down and at that time, she had slurry speech and was brought into the emergency room. CT head demonstrated a large right MCA infarct with likely hemorrhagic transformation. Patient with a history of atrial fibrillation and had only been on a baby aspirin. She had previously been on Coumadin for AFib, but had a retroperitoneal bleed. Unclear if patient is taking aspirin daily. HOSPITAL COURSE BY PROBLEM: 1. Catastrophic right MCA stroke: This is likely embolic with a history of atrial fibrillation and not fully anticoagulated. Patient with significant left -sided deficits, including hemiparesis and neglect. Patient was evaluated by Speech, PT, and OT. Has continued to decline. On evening of 07/03/2016, patient became tachypneic and hypoxic and requiring nonrebreather. She was placed on BiPAP at that time. X-ray had demonstrated a right lower lobe infiltrate. Repeat imaging demonstrated hemorrhagic conversion and herniation. Patient's family was called in and changed goals to comfort care. [facility] facility evaluated patient today and will transfer her directly. She was started on ASA in hospital, but this was discontinued with neuro decline and change to Hospice. 2. Acute on chronic hypoxic respiratory failure: This is likely secondary to aspiration pneumonia versus pneumonitis. Patient was initially treated with Unasyn however, given comfort state, will discontinue these medications. 3. Dyspnea: Patient has been receiving morphine for comfort. Also, scopolamine and glycopyrrolate for secretions. 4. Hypothyroidism: Will discontinue home medications. 5. Adrenal insufficiency: Continue these medications, now focusing on comfort care. 6. Goals: I have had multiple conversations with patient's son, daughter-in- law, and daughter. They agree for plan for transfer to a hospice facility. This is best given her need for symptomatic treatment of dyspnea and increased secretions. DISPOSITION: Transfer to [facility] today. MEDICATIONS: See medication reconciliation. Time spent on discharge is 90 minutes, of which greater than 50% was spent counseling family on hospice and discharge plan. /[id number]/MODL MTDD
[2016-07-06] MEDS ORDERED: PATCH REMOVAL 1 EA PATCH TD SCH (08:37)
== END 2016-07-04 18:21 | disposition hospice, home (50) | DRG 64 ==
LOC: F2N 13:49 → F3N 07-01 13:51
PROVIDERS: ADMIT Internal Medicine; ATTEND Internal Medicine
DX: I63.411 Cerebral infarction due to embolism of right middle cerebral artery (principal); G81.90 Hemiplegia, unspecified affecting unspecified side; R13.10 Dysphagia, unspecified; J96.21 Acute and chronic respiratory failure with hypoxia; R29.717 NIHSS score 17; I48.91 Unspecified atrial fibrillation; F03.90 Unspecified dementia, unspecified severity, without behavioral disturbance, psychotic disturbance, mood disturbance, and anxiety; E03.9 Hypothyroidism, unspecified; E27.40 Unspecified adrenocortical insufficiency; Z66 Do not resuscitate; Z85.3 Personal history of malignant neoplasm of breast; Z99.81 Dependence on supplemental oxygen; Z79.82 Long term (current) use of aspirin
CPT/HCPCS: 82947-QW; 84481-90; 84482-90; 92526-GN; 92610-GN; 96374; 97110-GP; 97161-GP; 97165-GO; 97530-GO; G8978-GP-CM; G8979-GP-CJ; G8987-GO-CM; G8988-GO-CK; J2543